=== PATIENT | female | born 1980 | race Caucasian/White ===

== ENCOUNTER 2021-07-11 10:56 | Emergency (ER) | payer OTHER, SELFPAY ==
--- NOTE | ~2021-07-11 | CT_ITS ---
EXAMINATION: CT CHEST WITHOUT CONTRAST CLINICAL INFORMATION: Patchy lung opacities on plain radiography suspicious for pneumonia. COVID positive. COMPARISON: Plain chest radiograph same date TECHNIQUE: Multidetector volumetric CT imaging of the chest was done. Axial MIP volume rendering provided. Sagittal and coronal reformatted images were obtained. This CT examination was performed using dose optimization techniques as appropriate, variously including the following: *Automated exposure control *Adjustment of mA and/or kV according to patient size (this includes techniques or standardized protocols for targeted exams where dose is matched to indication/reason for exam; i.e. extremities or head) *Use of iterative reconstruction technique DLP: 180 mGy-cm FINDINGS: SNACK STEWARDESS: Multiple ill-defined nodular pulmonary opacities predominating in the periphery and lower zones consistent with atypical/viral pneumonia. LUNGS: There are multiple bilateral ill-defined pulmonary nodules predominating in the lung periphery and bases. Air bronchograms are noted in the dominant 3.5 cm left lower lobe lesion. This appearance is consistent with acute lower respiratory tract infection/COVID pneumonia in a patient with a positive COVID assay. No cavitation. No endobronchial lesion. No underlying lung disease. MEDIASTINUM: Mediastinal nodes are mildly enlarged. Heart and great vessels are grossly normal on unenhanced CT. Heterogeneous attenuation of aorta, pulmonary arteries, and veins felt to be artifactual. PLEURA: There is no pleural effusion. No pleural mass or thickening. AXILLA: No lymphadenopathy. UPPER ABDOMEN: The spleen contains a 4 cm oval fluid attenuation mass consistent with a cyst. Suggest nonemergent follow-up with ultrasound. OSSEOUS STRUCTURES: No acute osseous abnormality. CT/CT chest wo con IMPRESSION: Multiple ill-defined pulmonary nodules with air bronchograms predominating in the lung bases and periphery. This appearance is consistent with acute lower respiratory infection/COVID pneumonia in the setting of a positive COVID assay. Fleischner guidelines were followed.
--- NOTE | ~2021-07-11 | XR_ITS ---
EXAMINATION: XR CHEST CLINICAL INFORMATION: Covid positive. COMPARISON: None TECHNIQUE: Frontal view of the chest was obtained. FINDINGS: The lungs are well-expanded with faint patchy opacity in both lung bases. The upper lungs are clear. The heart size and pulmonary vascularity is normal. No gross bony abnormality seen. XR/XR chest 1V IMPRESSION: Faint patchy opacities in both lung bases. ? early developing infiltrates.
[2021-07-11 11:05] VITALS: BP 110/70; O2SAT 100
[2021-07-11 11:06] VITALS: BP 91/52; PULSE 98; RESP 20; TEMP 36.6; O2SAT 100; BMI 25.6
--- NOTE | 2021-07-11 11:49 | PC.NURSE ---
elena rust [id number]
--- NOTE | 2021-07-11 11:58 | ECG_ITS ---
Test Reason : seizure/n/v Blood Pressure : / mmHG Vent. Rate : 087 BPM Atrial Rate : 087 BPM P-R Int : 138 ms QRS Dur : 074 ms QT Int : 368 ms P-R-T Axes : 070 041 059 degrees QTc Int : 442 ms Normal sinus rhythm Normal ECG No previous ECGs available Referred By: Sandra Lane Electronically Signed By:JUANITO ALTAMIRANO
--- NOTE | 2021-07-11 12:01 | ED.GENADULT ---
HPI - General Adult General Chief complaint: Nausea/Vomiting/Diarrhea Stated complaint: +COVID,BODYACHES, NAUSEA,FEVER Time Seen by Provider: 07/11/21 11:55 Source: patient, EMS and language interpreter Mode of arrival: EMS Limitations: no limitations History of Present Illness HPI narrative: 41-year-old female came in for evaluation of generalized body ache. Patient came in by ambulance because high volume patient was waiting in the waiting room, witnessed to have generalized tonic clonic seizure, with no post ictal time, patient is known to have a seizure history. Patient was tested positive for COVID 2 days ago presented today for having generalized body ache, chest pain, abdominal pain, nausea, vomit, and diarrhea 2 days. Related Data Previous Rx's Medication Instructions Recorded ondansetron HCl 4 mg tablet 4 mg PO BEDTIME PRN 4 Days tab 07/11/21 ondansetron HCl 4 mg tablet 4 mg PO BEDTIME PRN 4 Days #10 tab 07/11/21 Allergies Allergy/AdvReac Type Severity Reaction Status Date / Time Penicillins Allergy Mild Unknown Verified 07/11/21 11:56 Review of Systems Review of Systems: All other systems are reviewed and are negative Constitutional: Reports as per HPI and Reports no additional constitutional complaints Eyes: Reports as per HPI and Reports no additional eye complaints Reports system reviewed and no additional complaints, except as documented Cardiovascular: Reports as per HPI and Reports no additional cardiovascular complaints Respiratory: Reports as per HPI and Reports no additional respiratory complaints Gastrointestinal: Reports as per HPI and Reports no additional gastrointestinal complaints Genitourinary: Reports no additional female genitourinary complaints Musculoskeletal: Reports no additional musculoskeletal complaints Skin/Breast: Reports system reviewed and no additional complaints, except as docu Psychiatric: Reports no additional psychiatric complaints Endocrine: Reports no additional endocrine complaints Hematologic/Lymphatic: Reports no additional hematologic/lymphatic complaints Allergic/Immunologic: Reports no additional allergic/immunologic complaints Reports system reviewed and no additional complaints, except as documented and Reports Abnormal speech present [facility] Past Medical History Medical History Epilepsy Social History Social History Advance Directives: No Advance Directives Information Provided: No Patient : No Physical Exam Vital Signs: Vital Signs: Last Vital Signs Temp 98.6 F 07/11/21 14:51 Pulse 84 07/11/21 14:51 Resp 16 07/11/21 14:51 BP 100/64 07/11/21 14:51 Pulse Ox 100 07/11/21 14:51 BMI result Body Mass Index 25.6 Vital signs have been reviewed as appeared to be correct. Blood pressure normal. Heart rate normal. Respiration rate normal. Temperature normal. Oxygen saturation normal. Appearance: Alert. Oriented X3. No acute distress. Head: Normal external exam. Normocephalic. Atraumatic. No Rich signs noted. No raccoon eyes noted Eyes: PERRLA. EOMI. Conjunctiva and sclera normal. Eyelids normal. ENT: TM's Normal. Pharynx normal. Uvula midline. Moist mucous membranes. No trismus noted. No drooling noted. No muffled voice noted. Neck: Normal inspection. Neck supple. FROM. No adenopathy. Thyroid Normal. No meningeal signs. No neck mass noted. CVS: Normal heart rate and rhythm. Heart sound normal. No murmurs noted. Pulses normal throughout. Respiratory: No respiratory distress. Painless inspiration. Breath sounds normal. No wheezes/rales/rhonchi noted. Chest nontender. No accessory muscle usage noted or decreased air movement noted. Abdomen: Soft and nontender. Bowel sounds normal in all 4 quadrants. No distention noted. No organomegaly noted. No visible injury noted. Back: No CVA tenderness. Full range of motion noted. Skin: Skin warm and dry. Normal skin color. Normal skin turgor. No rashes/lesions/lacerations noted. Extremities: No lower extremity edema. Extremities exhibit normal range of motion. Extremities nontender. Neuro: Oriented X 3. Cranial nerve exam: II-XII are grossly intact No motor deficit. No sensory deficit. Reflexes normal. Course Course Course Narrative: Assessment and plan. 41-year-old female came in with 2 days of symptoms of generalized weakness and headache with nausea and vomiting, patient had questionable seizure without postictal perior in the waiting room. Patient feels slightly better after IV hydration and IV Zofran, with Tylenol. Chest x-ray was questioning bilateral infiltrate patient had CT of the chest which more consistent with COVID pneumonia. Patient received IV antibiotic empirically however will DC the antibiotic. Will discharge patient home, patient do not meet criteria for hospitalization with stable VS, normal O2 sat. Reevaluation(s) Time: 14:33 Medical Decision Making Lab Data Lab results reviewed: Yes I reviewed the patient's lab results. Result diagrams: 07/11/21 12:14 07/11/21 12:14 Labs: Lab Results 07/11/21 07/11/21 07/11/21 Range/Units 12:14 12:14 12:14 WBC 4.9 (4.8-10.8) X10*3/uL RBC 5.14 (4.20-5.50) X10*6/uL Hgb 14.6 (12.0-16.0) g/dl Hct 43.0 (37.0-47.0) % MCV 83.7 (80.0-98.0) fL MCH 28.4 (27.0-33.0) pg MCHC 34.0 (31.0-35.0) g/dl RDW 13.9 (11.0-16.0) % Plt Count 201 (160-400) X10*3/uL MPV 9.9 (9.4-12.3) fL Immature Gran % (Auto) 0.2 (0.0-0.4) % Neut % (Auto) 76.0 H (45-73) % Lymph % (Auto) 18.3 L (20-40) % [place] % (Auto) 5.1 (2-11) % Eos % (Auto) 0.2 (0-4) % Baso % (Auto) 0.2 (0-2) % Lymph # (Auto) 0.9 L (1.2-4.9) X10*3/uL [place] # (Auto) 0.3 (0.1-1.2) X10*3/uL Eos # (Auto) 0.0 (0.0-0.4) X10*3/uL Baso # (Auto) 0.0 (0.0-0.2) X10*3/uL Abs Immat Gran (auto) 0.01 (0.00-0.03) X10*3/uL Absolute Neuts (auto) 3.8 (2.0-8.3) x10*3/uL Absolute Nucleated RBC 0.000 (0.0-0.012) X10*3/uL Nucleated RBC % (auto) 0.0 (0.0-0.2) /100WBC Smear Tech's Comments VERIFIED Sodium 136 (135-145) mmol/L Potassium 3.5 (3.3-5.1) mmol/L Chloride 104 (96-108) mmol/L Carbon Dioxide 21 L (22-29) mmol/L Anion Gap 15 (12-20) BUN 17 H (9-16) mg/dL Creatinine 0.97 (0.5-1.4) mg/dL Estim Creat Clear Calc 65.5 Estimated GFR > 60 Random Glucose 120 H (60-115) mg/dL Lactic Acid (0.5-2.0) mmol/L Calcium 9.2 (8.4-10.2) mg/dL Total Bilirubin 0.4 (0.0-1.0) mg/dL Direct Bilirubin 0.2 (0.0-0.5) mg/dL AST 22 (5-31) U/L ALT 15 (0-31) U/L Alkaline Phosphatase 83 (39-117) U/L Troponin I High Sens < 3.5 (<3.5-17.0) ng/L B-Natriuretic Peptide (<100) pg/mL Total Protein 8.1 H (6.5-8.0) g/dL Albumin 4.2 (3.5-5.0) g/dL Lipase 42 (8-78) U/L COVID-19 ([facility]) (Negative) COVID-19 Clin Com 07/11/21 07/11/21 07/11/21 Range/Units 12:14 12:14 14:44 WBC (4.8-10.8) X10*3/uL RBC (4.20-5.50) X10*6/uL Hgb (12.0-16.0) g/dl Hct (37.0-47.0) % MCV (80.0-98.0) fL MCH (27.0-33.0) pg MCHC (31.0-35.0) g/dl RDW (11.0-16.0) % Plt Count (160-400) X10*3/uL MPV (9.4-12.3) fL Immature Gran % (Auto) (0.0-0.4) % Neut % (Auto) (45-73) % Lymph % (Auto) (20-40) % [place] % (Auto) (2-11) % Eos % (Auto) (0-4) % Baso % (Auto) (0-2) % Lymph # (Auto) (1.2-4.9) X10*3/uL [place] # (Auto) (0.1-1.2) X10*3/uL Eos # (Auto) (0.0-0.4) X10*3/uL Baso # (Auto) (0.0-0.2) X10*3/uL Abs Immat Gran (auto) (0.00-0.03) X10*3/uL Absolute Neuts (auto) (2.0-8.3) x10*3/uL Absolute Nucleated RBC (0.0-0.012) X10*3/uL Nucleated RBC % (auto) (0.0-0.2) /100WBC Smear Tech's Comments Sodium (135-145) mmol/L Potassium (3.3-5.1) mmol/L Chloride (96-108) mmol/L Carbon Dioxide (22-29) mmol/L Anion Gap (12-20) BUN (9-16) mg/dL Creatinine (0.5-1.4) mg/dL Estim Creat Clear Calc Estimated GFR Random Glucose (60-115) mg/dL Lactic Acid 1.2 (0.5-2.0) mmol/L Calcium (8.4-10.2) mg/dL Total Bilirubin (0.0-1.0) mg/dL Direct Bilirubin (0.0-0.5) mg/dL AST (5-31) U/L ALT (0-31) U/L Alkaline Phosphatase (39-117) U/L Troponin I High Sens (<3.5-17.0) ng/L B-Natriuretic Peptide < 10 (<100) pg/mL Total Protein (6.5-8.0) g/dL Albumin (3.5-5.0) g/dL Lipase (8-78) U/L COVID-19 ([facility]) Positive A (Negative) COVID-19 Clin Com See Note Imaging Data Chest x-ray: Attestation: I personally reviewed and interpreted this imaging study as follows: Radiologist's impression: Faint patchy opacities in both lung bases.? ? early developing infiltrates. CT chest: Attestation: I personally reviewed and interpreted this imaging study as follows: Radiologist's impression: Multiple ill-defined pulmonary nodules with air bronchograms predominating in the lung bases and periphery. This appearance is consistent with acute lower respiratory infection/COVID pneumonia in the setting of a positive COVID assay.? ? Discharge Plan Discharge Clinical Impression: COVID-19 virus infection Patient Disposition: Home, Self-Care Instructions: COVID-19 (Coronavirus Disease 2019) (ED) Additional Instructions: Use face mask at all times, frequent handwashing, keep social distancing, self quarantine at home, return to the emergency department if worsening of the symptoms. Prescriptions: New ondansetron HCl 4 mg tablet 4 mg PO BEDTIME PRN (Reason: nausea and vomiting) 4 Days RF: 0 ondansetron HCl 4 mg tablet 4 mg PO BEDTIME PRN (Reason: nausea and vomiting) 4 Days Qty: 10 RF: 0 Referrals: Physician,Unknown J [Primary Care Provider] - 2 days
[2021-07-11] MEDS: 0.9 % Sodium Chloride 1,000 ML 999 ML IV (12:11)
[2021-07-11] MEDS: ondansetron HCL 4 MG/2 ML VIAL IVPUSH ×2 (12:24→16:10)
[2021-07-11 12:31] LABS: Basophils Percent Auto 0.2 % (0-2); Eosinophils Percent Auto 0.2 % (0-4); Hemoglobin 14.6 g/dl (12.0-16.0); Imm Gran Abs Auto 0.01 X10*3/uL (0.00-0.03); Imm Gran Pct Auto 0.2 % (0.0-0.4); Lymphocytes Absolute Auto 0.9 X10*3/uL (1.2-4.9); Lymphocytes Percent Auto 18.3 % (20-40); MANUAL DIFF FLAG SCAN; Mean Corpuscular Hemoglobin 28.4 pg (27.0-33.0); Mean Corpuscular Volume 83.7 fL (80.0-98.0); Mean Platelet Volume 9.9 fL (9.4-12.3); Monocytes Absolute Auto 0.3 X10*3/uL (0.1-1.2); Monocytes Percent Auto 5.1 % (2-11); Neutrophils Absolute Auto 3.8 x10*3/uL (2.0-8.3); Platelet Count 201 X10*3/uL (160-400); Red Blood Count 5.14 X10*6/uL (4.20-5.50); Red Cell Distribution Width 13.9 % (11.0-16.0); SCAN SMEAR FLAG 1; White Blood Count 4.9 X10*3/uL (4.8-10.8)
[2021-07-11 12:36] VITALS: BP 126/65; PULSE 85; RESP 22; O2SAT 100
[2021-07-11 12:40] LABS: Alanine Aminotransferase 15 U/L (0-31); Albumin Level 4.2 g/dL (3.5-5.0); Alkaline Phosphatase 83 U/L (39-117); Anion Gap 15 (12-20); Aspartate Amino Transferase 22 U/L (5-31); Bilirubin Direct 0.2 mg/dL (0.0-0.5); Bilirubin Total 0.4 mg/dL (0.0-1.0); Blood Urea Nitrogen 17 mg/dL (9-16); COVID-19 Test Positive (Negative); Calcium 9.2 mg/dL (8.4-10.2); Carbon Dioxide 21 mmol/L (22-29); Chloride 104 mmol/L (96-108); Creatinine Clr Calc Pharmacy 65.5; Estimated Glomerular Filt Rate > 60; Glucose Random 120 mg/dL (60-115); IDNOW Serial# 55D5AD1C; Lipase 42 U/L (8-78); Potassium 3.5 mmol/L (3.3-5.1); Sodium 136 mmol/L (135-145); Total Protein 8.1 g/dL (6.5-8.0)
[2021-07-11 12:44] LABS: Troponin-I High Sensitivity < 3.5 ng/L (<3.5-17.0)
[2021-07-11 12:46] LABS: B Type Natriuretic Peptide < 10 pg/mL (<100)
[2021-07-11 12:50] LABS: SLIDE REVIEW VERIFIED
[2021-07-11 14:00] VITALS: BP 116/75; PULSE 90; RESP 18; O2SAT 99
[2021-07-11] MEDS: cefTRIAXone sodium 1 GM in 0.9 % Sodium Chloride 50 ML IV (14:49)
[2021-07-11 14:51] VITALS: BP 100/64; PULSE 84; RESP 16; TEMP 37; O2SAT 100
[2021-07-11 15:00] LABS: Lactic Acid 1.2 mmol/L (0.5-2.0)
[2021-07-11] MEDS: Azithromycin 500 MG in 0.9 % Sodium Chloride 250 ML 125 MG IV (15:47)
[2021-07-11] MEDS: Acetaminophen 325 MG TABLET 650 MG PO (16:10)
[2021-07-11] MEDS: Morphine Sulfate 2 MG/ML CARTRIDGE 1 MG IVPUSH (16:11)
[2021-07-11 18:57] VITALS: BP 106/66; PULSE 84; RESP 16; O2SAT 96
== END 2021-07-11 18:58 | disposition home or self-care (01) ==
PROVIDERS: Emergency Provider Emergency Medicine
DX: U07.1 COVID-19 (principal); G40.409 Other generalized epilepsy and epileptic syndromes, not intractable, without status epilepticus
CPT/HCPCS: 36415; 71045; 71250; 80048; 80076; 83605; 83690; 83880; 84484; 85025; 87040; 87635; 93005; 96361; 96365; 96367; 96375; 96376; 99284; J0456; J0696; J2270; J2405

== ENCOUNTER 2023-05-30 14:49 | Emergency (ER) | payer MEDICAID, SELFPAY ==
--- NOTE | ~2023-05-30 | CT_ITS ---
EXAMINATION: CT CERVICAL SPINE WITHOUT CONTRAST CLINICAL INFORMATION: Fall. COMPARISON: CT head 05/30/2023. TECHNIQUE: Mechanical Engineering Professor images were obtained. CT imaging of the cervical spinal was performed without contrast. Data was reformatted into multiplanar images at the acquisition workstation. This CT examination was performed using dose optimization techniques as appropriate, variously including the following: *Automated exposure control *Adjustment of mA and/or kV according to patient size (this includes techniques or standardized protocols for targeted exams where dose is matched to indication/reason for exam; i.e. extremities or head) *Use of iterative reconstruction technique DLP: 305 mGy-cm FINDINGS: Spinal alignment is normal in the sagittal dimension. Vertebral body heights are preserved. No acute cervical spine fracture. No abnormal prevertebral soft tissue swelling. There is no spinal canal compromise. No substantial bony neuroforaminal encroachment. Visualized soft tissues of the neck are normal. Lung apices are clear. CT/CT cervical spine wo IV con IMPRESSION: Unremarkable CT scan of the cervical spine. No acute fracture and no posttraumatic spinal subluxation.
--- NOTE | ~2023-05-30 | CT_ITS ---
EXAMINATION: CT HEAD WITHOUT CONTRAST CLINICAL INFORMATION: Injury. Seizure. COMPARISON: None. TECHNIQUE: Contiguous axial imaging was performed from the skull base to vertex without intravenous administration of contrast. Coronal and sagittal reformatted images are performed at the CT scanner. [This CT examination was performed using dose optimization techniques as appropriate, variously including the following: *Automated exposure control *Adjustment of mA and/or kV according to patient size (this includes techniques or standardized protocols for targeted exams where dose is matched to indication/reason for exam; i.e. extremities or head) *Use of iterative reconstruction technique] DLP: 557 mGy-cm. FINDINGS: There is no evidence of acute intracranial hemorrhage or territorial infarction. No abnormal mass-effect or midline shift is seen. [place] to white matter differentiation is well preserved. No extra-axial fluid collections are identified. The ventricles are normal in size. There is no abnormal attenuation within the brain parenchyma. There is no osseous abnormality. The mastoid air cells and visualized portions of the paranasal sinuses are well-aerated. CT/CT head/brain wo IV con IMPRESSION: No acute intracranial pathology.
--- NOTE | ~2023-05-30 | XR_ITS ---
EXAMINATION: XR CHEST CLINICAL INFORMATION: Vomiting after seizure. COMPARISON: CT chest 07/11/2021. Chest radiograph 07/11/2021. TECHNIQUE: Frontal view of the chest was obtained. FINDINGS: Normal appearance of the cardiomediastinal silhouette. No focal airspace opacities, pleural effusion or pneumothorax. No acute osseous findings. Visualized upper abdomen is within normal limits. XR/XR chest 1V IMPRESSION: No acute cardiopulmonary findings.
[2023-05-30 14:56] VITALS: BP 130/80; PULSE 54; O2SAT 99
[2023-05-30 14:57] VITALS: BP 95/45; PULSE 50; RESP 18; TEMP 36.6; O2SAT 99; BMI 22.0
--- NOTE | 2023-05-30 15:38 | ECG_ITS ---
Test Reason : N/V Blood Pressure : / mmHG Vent. Rate : 054 BPM Atrial Rate : 054 BPM P-R Int : 166 ms QRS Dur : 084 ms QT Int : 448 ms P-R-T Axes : 000 059 057 degrees QTc Int : 424 ms Sinus bradycardia Otherwise normal ECG When compared with ECG of 11-JUL-2021 12:39, Vent. rate has decreased BY 33 BPM Referred By: Lissa Weiss Electronically Signed By:KAYLA SALDANA MD
--- NOTE | 2023-05-30 15:40 | ED.GENADULT ---
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 Was going to take a shower today when the daughter found her off the toilet on the ground with eyes rolled back she thinks she was having a seizure but did not wake up postictal. She woke up pale and vomiting c/o headache. She is still actively vomiting and not able to answer many questions due to vomiting. MD complaint: seizure vs syncope Onset (ago): hour(s) (1) Location: head Radiation: non-radiation Severity: moderate Pain Consistency: constant Relieving factors: none Exacerbating factors: none Associated symptoms: other (seizure vs syncope, active vomiting) Treatments prior to arrival: other (zofran) Related Data Previous Rx's Medication Instructions Recorded ondansetron HCl 4 mg tablet 4 mg PO BEDTIME PRN nausea and 07/11/21 vomiting 4 days ondansetron HCl 4 mg tablet 4 mg PO BEDTIME PRN nausea and 07/11/21 vomiting 4 days #10 tabs levetiracetam 500 mg tablet 500 mg PO BID #60 tabs 05/30/23 (Keppra) Allergies Allergy/AdvReac Type Severity Reaction Status Date / Time Penicillins Allergy Mild Unknown Verified 07/11/21 11:56 animal dander Allergy Unknown Unknown Verified 03/05/23 10:43 tramadol Allergy Unknown Nausea and Verified 03/05/23 10:43 Vomiting Review of Systems Review of Systems: ROS unable to be obtained due to active vomiting - daughter and family provided history PMFSH Past Medical History Attestation statement: The following information was validated with the patient. Medical History Asthma Epilepsy Social History Social History (Updated 05/30/23 @ 16:07 by Lissa Weiss DO) Patient Tobacco Use Status: Tobacco use Unknown Advance Directives: No Advance Directives Information Provided: Yes Physical Exam ED Vital Signs: Vital Signs - 24 hr 05/30/23 14:57 05/30/23 16:21 05/30/23 19:11 Temperature 98 F 97.6 F Pulse Rate 50 64 59 Respiratory Rate 18 17 14 Blood Pressure 95/45 L 100/74 103/75 Pulse Oximetry 99 98 98 Oxygen Delivery Method Room Air Room Air Room Air BMI result Body Mass Index 22.0 Appearance: Alert. active vomiting currently answering yes or no questions. Moderate acute distress. Eyes: Pupils equal, round and reactive to light. ENT: Pharynx dry MM. Contusion on R eyebrow Neck: Normal inspection. Neck supple. CVS: Normal heart rate and rhythm. Pulses normal. Respiratory: No respiratory distress. Breath sounds normal. Abdomen: Soft and non-tender. Skin: Skin warm and dry. pale skin color. Normal skin turgor. Extremities: No lower extremity edema. No calf ttp Neuro: answering yes or no questions. No motor deficit. No sensory deficit. patient more awake I think she was postictal she admits to hitting her head she also notes she doesnt remember the bathroom and is not always compliant with her levetiracetam Course Course Course Narrative: I asked CT scan to take her for possible ICH 4pm Medications Administered Discontinued Medications Generic Name Dose Route Start Last Admin Trade Name Kate PRN Reason Stop Dose Admin Sodium Chloride 1,000 mls @ 999 mls/hr 05/30/23 15:45 05/30/23 16:21 Ns IVCONT 05/30/23 17:45 999 mls/hr .Q1H1M JACOB Administration Levetiracetam 1,000 mg in 100 mls @ 400 mls/hr 05/30/23 15:38 05/30/23 15:54 Keppra IV 05/30/23 15:52 400 mls/hr ONCE ONE Administration Lorazepam 0.5 mg 05/30/23 15:38 05/30/23 15:52 Lorazepam 2 Mg/Ml Vial IVPUSH 05/30/23 15:39 0.5 mg STAT STA Administration Ondansetron HCl 4 mg 05/30/23 15:38 05/30/23 15:51 Ondansetron Hcl 4 Mg/2 Ml Vial IVPUSH 05/30/23 15:39 4 mg ONCE ONE Administration Medical Decision Making Medical Decision Making [facility] Narrative: 42 yo female with PMH of asthma, seizures on keppra 500mg BID here with feelings she might have seizure starting yesterday had event while on toilet but no postictal state per daughter now has LICONA with vomiting - requested STAT CT head for ICH, labs, EKG, IVF x 2L, IV keppra and ativan. I reviewed her pharmacy and last fill of keppra was in Jul 2022. Unsure if ICH, seizure or syncope. Differential Diagnosis Differential Diagnoses: The differential diagnosis associated with the presentation includes ICH, seizure or syncope. Admission/Observation Consideration of admission/observation: Escalation of care including admission/observation considered at baseline admits to smoking THC blunts with a male friend and has felt off and weird when I told her she tested positive for cocaine and opiates she was shocked and scared and notes it was likely due to whatever was on the THC. she states she never does drugs no need for narcan at this time given Rx to go home with stable for DC Lab Data [facility] Lab Attestation statement: I reviewed the patient's lab results. 05/30/23 16:40 05/30/23 16:40 Labs: Lab Results 05/30/23 05/30/23 Range/Units 16:40 18:24 WBC 6.6 (4.8-10.8) X10*3/uL RBC 4.36 (4.20-5.50) X10*6/uL Hgb 12.3 (12.0-16.0) g/dl Hct 39.3 (37.0-47.0) % MCV 90.1 (80.0-98.0) fL MCH 28.2 (27.0-33.0) pg MCHC 31.3 (31.0-35.0) g/dl RDW 15.2 (11.0-16.0) % Plt Count 314 D (160-400) X10*3/uL MPV 9.8 (9.4-12.3) fL Immature Gran % (Auto) 0.5 H (0.0-0.4) % Neut % (Auto) 79.0 H (45-73) % Lymph % (Auto) 14.4 L (20-40) % [place] % (Auto) 4.1 (2-11) % Eos % (Auto) 1.5 (0-4) % Baso % (Auto) 0.5 (0-2) % Lymph # (Auto) 1.0 L (1.2-4.9) X10*3/uL [place] # (Auto) 0.3 (0.1-1.2) X10*3/uL Eos # (Auto) 0.1 (0.0-0.4) X10*3/uL Baso # (Auto) 0.0 (0.0-0.2) X10*3/uL Abs Immat Gran (auto) 0.03 (0.00-0.03) X10*3/uL Absolute Neuts (auto) 5.2 (2.0-8.3) x10*3/uL Absolute Nucleated RBC 0.000 (0.0-0.012) X10*3/uL Nucleated RBC % (auto) 0.0 (0.0-0.2) /100WBC Sodium 139 (135-145) mmol/L Potassium 4.2 (3.3-5.1) mmol/L Chloride 110 H (96-108) mmol/L Carbon Dioxide 24 (22-29) mmol/L Anion Gap 9 L (12-20) BUN 10 (9-16) mg/dL Creatinine 0.73 (0.5-1.4) mg/dL Estim Creat Clear Calc 81.3 Estimated GFR > 60 Random Glucose 108 (60-115) mg/dL Lactic Acid 0.9 (0.5-2.0) mmol/L Calcium 8.7 (8.4-10.2) mg/dL Magnesium 2.1 (1.6-2.6) mg/dL Total Bilirubin 0.4 (0.0-1.0) mg/dL Direct Bilirubin 0.1 (0.0-0.5) mg/dL AST 21 (5-31) U/L ALT 17 (0-31) U/L Alkaline Phosphatase 75 (39-117) U/L Ammonia 19 (13-55) umol/L Troponin I High Sens < 2.7 (<3.5-17.0) ng/L Total Protein 7.6 (6.5-8.0) g/dL Albumin 3.9 (3.5-5.0) g/dL Lipase 15 (8-78) U/L Beta HCG, Quant < 2 mIU/mL Urine Opiates Screen POSITIVE H (Not Detect) Urine Fentanyl Screen POSITIVE H (Not Detect) Ur Barbiturates Screen Not Detected (Not Detect) Ur Phencyclidine Scrn Not Detected (Not Detect) Ur Amphetamines Screen Not Detected (Not Detect) U Benzodiazepines Scrn Not Detected (Not Detect) Urine Cocaine Screen POSITIVE H (Not Detect) U Marijuana (THC) Screen POSITIVE H (Not Detect) Ethyl Alcohol < 10 mg/dL Influenza Type A (PCR) NEGATIVE (Negative) Influenza Type B (PCR) NEGATIVE (Negative) RSV RNA Qual (PCR) NEGATIVE (Negative) SARS-CoV-2 RNA (RT-PCR) NEGATIVE (Negative) Independent Interpretation I performed an independent interpretation of an: EKG and CT Scan (no ICH) Interpretation: Rate: 54 Rhythm: sinus bradycardia [place]: normal Normal P waves. Normal CHRIS. Normal QRS complex. ST T wave : normal no JADYN qTC: normal prior studies: no acute ischemia The study has been interpreted contemporaneously by me. . Radiology Impression Discussion of test interpretation with radiology: I have reviewed the radiologist's reading. Independent Historian Clinical information obtained from an independent historian. History obtained from or confirmed by: Other (daughter) External Record Review External record reviewed: Inpatient record Prescription Management I considered prescription management with: Other Discharge Plan Discharge Clinical Impression: Syncope and collapse, Cocaine use, Adv eff opiates Patient Disposition: Home, Self-Care Instructions: Syncope (ED), Cocaine Abuse (ED), Opioid Use Disorder (ED) Additional Instructions: start the seizure medications tomorrow. you tested positive for cocaine and fentanyl. whatever you are smoking is not marijuana. please return for worsening symptoms, fevers, vomiting, confusion or any other concerns. Comience a harmony los medicamentos para las convulsiones ma?jone. Zia positivo en coca?na y fentanilo. Lo que sea que fumes no es marihuana. regrese si los s?ntomas empeoran, tiene fiebre, v?mitos, confusi?n o cualquier otra inquietud. Prescriptions: New levetiracetam [Keppra] 500 mg tablet 500 mg PO BID Qty: 60 1RF No Action ondansetron HCl 4 mg tablet 4 mg PO BEDTIME PRN (Reason: nausea and vomiting) 4 Days 0RF ondansetron HCl 4 mg tablet 4 mg PO BEDTIME PRN (Reason: nausea and vomiting) 4 Days Qty: 10 0RF Print Language: Guyanese
[2023-05-30] MEDS: ondansetron HCL 4 MG/2 ML VIAL IVPUSH (15:51)
[2023-05-30] MEDS: 0.9 % Sodium Chloride 1,000 ML 999 ML IVCONT ×2 (15:51→16:21)
[2023-05-30] MEDS: LORazepam 2 MG/ML VIAL 0.5 MG IVPUSH (15:52)
[2023-05-30] MEDS: levETIRAcetam in NaCl (iso-os) 1,000 MG/100 ML PIGGYBACK 400 MG IV (15:54)
[2023-05-30 16:21] VITALS: BP 100/74; PULSE 64; RESP 17; O2SAT 98
[2023-05-30 16:48] LABS: MANUAL DIFF FLAG NO
[2023-05-30 16:57] LABS: Ammonia 19 umol/L (13-55)
[2023-05-30 17:02] LABS: Lactic Acid 0.9 mmol/L (0.5-2.0)
[2023-05-30 17:05] LABS: Ethanol < 10 mg/dL
[2023-05-30 17:07] LABS: Alanine Aminotransferase 17 U/L (0-31); Albumin Level 3.9 g/dL (3.5-5.0); Alkaline Phosphatase 75 U/L (39-117); Anion Gap 9 (12-20); Aspartate Amino Transferase 21 U/L (5-31); Bilirubin Direct 0.1 mg/dL (0.0-0.5); Bilirubin Total 0.4 mg/dL (0.0-1.0); Blood Urea Nitrogen 10 mg/dL (9-16); Calcium 8.7 mg/dL (8.4-10.2); Carbon Dioxide 24 mmol/L (22-29); Chloride 110 mmol/L (96-108); Creatinine Clr Calc Pharmacy 81.3; Estimated Glomerular Filt Rate > 60; Glucose Random 108 mg/dL (60-115); Lipase 15 U/L (8-78); Magnesium 2.1 mg/dL (1.6-2.6); Potassium 4.2 mmol/L (3.3-5.1); Sodium 139 mmol/L (135-145); Total Protein 7.6 g/dL (6.5-8.0)
[2023-05-30 17:17] LABS: HCG Quantitative < 2 mIU/mL; Troponin-I High Sensitivity < 2.7 ng/L (<3.5-17.0)
[2023-05-30 17:53] LABS: Basophils Percent Auto 0.5 % (0-2); Eosinophils Absolute Auto 0.1 X10*3/uL (0.0-0.4); Eosinophils Percent Auto 1.5 % (0-4); Hematocrit 39.3 % (37.0-47.0); Hemoglobin 12.3 g/dl (12.0-16.0); Imm Gran Abs Auto 0.03 X10*3/uL (0.00-0.03); Imm Gran Pct Auto 0.5 % (0.0-0.4); Lymphocytes Percent Auto 14.4 % (20-40); Mean Corpuscular HGB Conc 31.3 g/dl (31.0-35.0); Mean Corpuscular Hemoglobin 28.2 pg (27.0-33.0); Mean Corpuscular Volume 90.1 fL (80.0-98.0); Mean Platelet Volume 9.8 fL (9.4-12.3); Monocytes Absolute Auto 0.3 X10*3/uL (0.1-1.2); Monocytes Percent Auto 4.1 % (2-11); Neutrophils Absolute Auto 5.2 x10*3/uL (2.0-8.3); Platelet Count 314 X10*3/uL (160-400); Red Blood Count 4.36 X10*6/uL (4.20-5.50); Red Cell Distribution Width 15.2 % (11.0-16.0); White Blood Count 6.6 X10*3/uL (4.8-10.8)
[2023-05-30 18:51] LABS: Amphetamine Screen Urine Not Detected (Not Detect); Barbiturates, Urine Not Detected (Not Detect); Benzodiazepines Screen Urine Not Detected (Not Detect); Cannabinoid Screen Urine POSITIVE (Not Detect); Cocaine Screen Urine POSITIVE (Not Detect); Fentanyl, urine POSITIVE (Not Detect); Opiate Screen Urine POSITIVE (Not Detect); Phencyclidine Screen Urine Not Detected (Not Detect)
[2023-05-30 19:11] VITALS: BP 103/75; PULSE 59; RESP 14; TEMP 36.4; O2SAT 98
[2023-05-30 19:12] LABS: Influenza A PCR NEGATIVE (Negative); Influenza B PCR NEGATIVE (Negative); Resp Syncy Virus RNA Qual PCR NEGATIVE (Negative); SARS COV2 PCR INHOUSE NEGATIVE (Negative)
--- NOTE | 2023-05-30 22:04 | PC.NURSE ---
can sealer utilized at discharge. iv removed. pt a&o x4 . family at bedside. pt provided with discharge packet. pt verbalized understanding of discharge plan
== END 2023-05-30 22:30 | disposition home or self-care (01) ==
PROVIDERS: Emergency Provider Emergency Medicine
DX: R55 Syncope and collapse (principal); R51.9 Headache, unspecified; R11.2 Nausea with vomiting, unspecified; F14.10 Cocaine abuse, uncomplicated; R00.1 Bradycardia, unspecified; M54.2 Cervicalgia; Z79.899 Other long term (current) drug therapy; Z20.822 Contact with and (suspected) exposure to COVID-19; Z20.828 Contact with and (suspected) exposure to other viral communicable diseases
CPT/HCPCS: 0241U; 36415; 70450; 71045; 72125; 80048; 80076; 80307; 82140; 83605; 83690; 83735; 84484; 84702; 85025; 93005; 96361; 96374; 96375; 99285; J1953; J2060; J2405

== ENCOUNTER → 2023-05-30 15:38 | Outpatient (BNV) | payer MEDICAID, SELFPAY | PROVIDERS: Emergency Provider Emergency Medicine; Visit Provider Internal Medicine Cardiovascular Disease | DX: R00.1 Bradycardia, unspecified (principal) | CPT/HCPCS: 93010 ==